=== PATIENT | female | born 1995 | race Two or more races ===

== ENCOUNTER 2018-05-05 19:05 | Emergency (ER) | payer OTHER ==
[2018-05-05 19:19] VITALS: BMI 26.4
[2018-05-05 19:47] LABS: URINE APPEARANCE SLCLOUDY; URINE BILIRUBIN NEGATIVE (<2.0 mg/dL); URINE COLOR YELLOW; URINE GLUCOSE (UA) NEGATIVE (NEGATIVE); URINE KETONE NEGATIVE (NEGATIVE); URINE LEUK ESTERASE TRACE (NEGATIVE); URINE NITRITE NEGATIVE (NEGATIVE); URINE PROTEIN NEGATIVE (NEGATIVE); URINE UROBILINOGEN NEGATIVE mg/dL (0.2-1.0)
[2018-05-05 19:49] LABS: EPI CELLS RARE /HPF (FEW); URINE BACTERIA RARE /hpf (NONE SEEN); URINE HYALINE CAST 1 /lpf; URINE MUCUS RARE
[2018-05-05 19:51] LABS: HCG,QUALITATIVE URINE Negative
--- NOTE | 2018-05-05 20:09 | PDOC ---
History of Present Illness - General Chief Complaint: Pain, Acute Stated Complaint: KIDNEY STONE History Source: Patient Exam Limitations: No Limitations - History of Present Illness Initial Comments: 05/05/18 20:03 Patient is a 23-year-old female no past medical history here with complaints of bilateral flank pain 2 weeks. Pain has been intermittent occasionally sharp stabbing in the flank, mostly on the left, now 8/10 but becomes 10/10 with urination. He assumes this may be from her kidney because she had leg swelling a month ago and went to her PMD on 04/08 and he recommended ultrasound of her kidneys which is now scheduled for next week. Yesterday took naproxen for the pain management relief. LMP 04/26/18 PMD: Not remember name PMHX: neg PSocHx: neg cig, neg durg, occ etoh ALL: NKDA GENERAL/CONSTITUTIONAL: [No fever or chills. No weakness. No weight change.] HEAD, EYES, EARS, NOSE AND THROAT: [No change in vision. No ear pain or discharge. No sore throat.] CARDIOVASCULAR: [No chest pain or shortness of breath.] RESPIRATORY: [No cough, wheezing, or hemoptysis.] GASTROINTESTINAL: [No nausea, vomiting, diarrhea or constipation. No rectal bleeding.] GENITOURINARY: [No dysuria, frequency, or change in urination.] MUSCULOSKELETAL: [No joint or muscle swelling or pain. No neck or back pain.] SKIN AND BREASTS: [No rash or easy bruising.] NEUROLOGIC: [No headache, vertigo, loss of consciousness, or loss of sensation.] PSYCHIATRIC: [No depression or anxiety.] ENDOCRINE: [No increased thirst. No abnormal weight change.] HEMATOLOGIC/LYMPHATIC: [No anemia, easy bleeding, or history of blood clots.] ALLERGIC/IMMUNOLOGIC: [No hives or skin allergy. No latex allergy.] GENERAL: [The patient is awake, alert, and fully oriented, in mild distress.] HEAD: [Normal with no signs of trauma.] EYES: [Pupils equal, round and reactive to light, extraocular movements intact, sclera anicteric, conjunctiva clear.] ENT: [Ears normal, nares patent, oropharynx clear without exudates. Moist mucous membranes.] NECK: [Normal range of motion, supple without lymphadenopathy, JVD, or masses.] LUNGS: [Breath sounds equal, clear to auscultation bilaterally. No wheezes, and no crackles.] HEART: [Regular rate and rhythm, normal S1 and S2 without murmur, rub.] ABDOMEN: [Soft, mild tenderness to the left lower quad, normoactive bowel sounds. No guarding, no rebound. No masses., (+) b/l CVAT] EXTREMITIES: [Normal range of motion, no edema. No clubbing or cyanosis. No cords, erythema, or tenderness.] NEUROLOGICAL: [Cranial nerves II through XII grossly intact. Normal speech, normal gait.] PSYCH: [Normal mood, normal affect.] SKIN: [Warm, Dry, normal turgor, no rashes or lesions noted.] Past History - Past Medical History Allergies/Adverse Reactions: Allergies Allergy/AdvReac Type Severity Reaction Status Date / Time No Known Allergies Allergy Verified 05/05/18 19:27 COPD: No - Suicide/Smoking/Psychosocial Hx Smoking History: Never smoked Have you smoked in the past 12 months: No Information on smoking cessation initiated: No Hx Alcohol Use: No Drug/Substance Use Hx: No *Physical Exam - Vital Signs Last Vital Signs Temp Pulse Resp BP Pulse Ox 98.8 F 76 20 108/60 100 05/05/18 19:16 05/05/18 19:16 05/05/18 19:16 05/05/18 19:16 05/05/18 19:16 ED Treatment Course - LABORATORY CBC & Chemistry Diagram: 05/05/18 20:53 05/05/18 20:53 - ADDITIONAL ORDERS Additional order review: Laboratory Results 05/05/18 19:35 Urine Color Yellow Urine Appearance Slcloudy Urine pH 6.0 Ur Specific [place] 1.029 Urine Protein Negative Urine Glucose (UA) Negative Urine Ketones Negative Urine Blood Negative Urine Nitrite Negative Urine Bilirubin Negative Urine Urobilinogen Negative Ur Leukocyte Esterase Trace Urine WBC (Auto) 6 Urine RBC (Auto) 4 Ur Epithelial Cells Rare Urine Bacteria Rare Hyaline Casts 1 Urine Mucus Rare Urine HCG, Qual Negative Medical Decision Making - Medical Decision Making 05/05/18 20:03 Patient is a 23-year-old female no past medical history here with complaints of bilateral flank pain 2 weeks. 05/05/18 22:22 Patient Full Name: QIU Patient Accession No: [id number] Patient : 1995 Reason for Exam: kidney stones Referring Physician: MILLA DUNCAN Patient Name: HEATHER FRANCO THIS IS A PRELIMINARY REPORT FROM [facility] DATE OF SERVICE: 2018-05-05 21:11:30 IMAGES: [id number] EXAM: CT abdomen and pelvis without IV contrast. Clinical indication: Flank pain. Assess for kidney stones. There are no prior studies. For comparison. Technique: Axial unenhanced CT images of the abdomen and pelvis were obtained followed by coronal and sagittal reformats. Findings: The visualized portions of the lower thorax are within normal limits. There is no free intra-abdominal gas or fluid. The liver, gallbladder, adrenals, pancreas, and spleen are grossly unremarkable , given limitations of CT. Within the upper portion of the right kidney there is a 0.2 cm nonobstructive renal calculus. Inferior aspect of the right kidney there is a 0.1 cm nonobstructive renal calculus. There are no left-sided nonobstructive renal calculi. There is lack of significant intra-abdominal fat which makes separation of soft tissues difficult. The bilateral ureters cannot traced along their entire course. Within the right side of the pelvis, axial image 127, there is a 0.2 cm calcification which could represent a phlebolith versus a distal right ureteric stone. There is no obvious right-sided hydronephrosis. There is a left-sided phlebolith. The bilateral kidneys are otherwise unremarkable, given the limitations of a nonenhanced CT. Or graft the urinary bladder is contracted. There are no definite enlarged abdominal or pelvic lymph nodes, by size criteria. The pelvic organs are grossly unremarkable, given the limitations of CT for evaluating them. The appendix is within normal limits. The remainder of the bowel is unremarkable. The visualized bony structures are within normal limits for the patient's age. Impression: 1. No definite hydronephrosis. However, there is a 0.2 cm calcification within the right pelvis which could represent a phlebolith versus a distal right ureteric stone. Clinical correlation is recommended. 2. 2 tiny right-sided nonobstructive renal calculi. 3. Otherwise, unremarkable CT of the abdomen and pelvis, given limitations of an unenhanced CT. Individualized dose optimization techniques were used for this CT. THIS DOCUMENT HAS BEEN ELECTRONICALLY SIGNED Mian Chambers MD 05/05/2018 21:01 KURT Fontaine Please call [facility] [phone] ([phone]) with questions. INTERPRETING RADIOLOGIST: Mian Chambers MD Electronically Signed: May 05, 2018 10:02PM EDT 05/05/18 23:14 Patient is improved since pain medication, tolerating by mouth. Will discharge patient with suction to follow-up PMD. I discussed the physical exam findings, ancillary test results and final diagnoses with the patient. I answered all of the patient's questions. The patient was satisfied with the care received and felt comfortable with the discharge plan and treatment plan. The Patient agrees to follow up with the primary care physician within 24-72 hours. *DC/Admit/Observation/Transfer Diagnosis at time of Disposition: Flank pain - Discharge Dispostion Disposition: HOME Condition at time of disposition: Stable - Referrals - Patient Instructions Printed Discharge Instructions: DI for Flank Pain Additional Instructions: Your Discharge Instructions: You must call primary care physician within 24 hours to arrange follow-up. Return to the Emergency Department with any new, persistent or worsening symptoms, for fever, chills, SOB, dizziness or any other concerning changes that may occur. - Post Discharge Activity
[2018-05-05] MEDS ORDERED: KETOROLAC TROMETHAMINE 30 MG/1 ML VIAL IVPUSH ONE (20:10)
[2018-05-05] MEDS ORDERED: SODIUM CHLORIDE 0.9% 500 ML INFUS.BAG IV ONE (20:12)
[2018-05-05] MEDS ORDERED: KETOROLAC TROMETHAMINE 30 MG/1 ML VIAL ONE (20:41)
[2018-05-05 21:00] LABS: BASO % 1.2 % (0-2.0); EOS % 6.3 % (0-4.5); HEMATOCRIT 39.3 % (32.4-45.2); HEMOGLOBIN 13.2 GM/dL (10.7-15.3); LYMPH % 40.7 % (8-40); MCH 31.3 pg (25.7-33.7); MCHC 33.6 g/dl (32.0-36.0); MEAN CELL VOLUME 93.3 fl (80-96); MEAN PLT VOLUME 8.9 fl (7.5-11.1); MONO % 9.5 % (3.8-10.2); NEUT % 42.3 % (42.8-82.8); PLATELET COUNT 213 K/MM3 (134-434); RBC 4.21 M/mm3 (3.60-5.2); RDW 14.1 % (11.6-15.6); WHITE BLOOD COUNT 5.3 K/mm3 (4.0-10.0)
[2018-05-06 00:34] LABS: ALBUMIN 3.5 g/dl (3.4-5.0); ANION GAP 7 MMOL/L (8-16); BLOOD UREA NITROGEN 14 mg/dL (7-18); CALCIUM 7.9 mg/dL (8.5-10.1); CHLORIDE 112 mmol/L (98-107); CO2 22 mmol/L (21-32); GLUCOSE,RANDOM 71 mg/dL (74-106); SODIUM 141 mmol/L (136-145)
[2018-05-06 00:38] LABS: ALK PHOS 104 U/L (45-117); BILIRUBIN,TOTAL 0.3 mg/dL (0.2-1.0); CREATININE 0.6 mg/dL (0.55-1.02); SGPT/ALT 14 U/L (12-78); TOT PROT 6.3 g/dl (6.4-8.2)
[2018-05-06 00:48] LABS: SGOT/AST 19 U/L (15-37)
[2018-05-06 01:20] VITALS: BP 110/78; PULSE 89; TEMP 98.5
== END 2018-05-06 01:20 | disposition home or self-care (01) ==
LOC: JER 19:05
PROC: 3E0333Z Introduction of Anti-inflammatory into Peripheral Vein, Percutaneous Approach (ICD-10-PCS; principal; 2018-05-05)
DX: R10.32 Left lower quadrant pain (principal); R10.31 Right lower quadrant pain
CPT/HCPCS: 36415; 74176; 80053; 81003; 81015; 84703; 85025; 87086; 96374; 99281-25